=== PATIENT | male | born 1980 | race Caucasian/White ===

== ENCOUNTER 2018-07-29 11:52 | Day surgery (SDC) | payer OTHER ==
[2018-07-29] MEDS ORDERED: LIDOCAINE 2% (SDV) 5 ML INJ (14:44)
[2018-07-29] MEDS ORDERED: PROPOFOL 40 ML (14:44)
[2018-07-29] MEDS ORDERED: MIDAZOLAM 1 MG/ML 2 ML INJ (15:03)
[2018-07-29] MEDS ORDERED: FENTAnyl 50 MCG/ML VIAL (15:03)
== END 2018-07-29 16:35 | disposition home or self-care (01) ==
LOC: GIL 11:52
DX: K21.0 Gastro-esophageal reflux disease with esophagitis (principal); K44.9 Diaphragmatic hernia without obstruction or gangrene
CPT/HCPCS: 43239; 88305; 88312; 88313